=== PATIENT | male | born 1960 ===

== ENCOUNTER 2024-08-04 16:36 | Emergency (ER) | payer MEDICARE, OTHER ==
[~2024-08-04] VITALS: Ht 180.3 cm; Wt 63.6 kg
[2024-08-04 16:41] VITALS: BP 173/100; PULSE 84; RESP 18; TEMP 97.9; O2SAT 99
== END 2024-08-04 19:16 | disposition left against medical advice (07) ==
LOC: EMS 16:36
DX: Z53.21 Procedure and treatment not carried out due to patient leaving prior to being seen by health care provider (principal)